=== PATIENT | female | born 1980 | race Caucasian/White ===

== ENCOUNTER → 2016-09-29 | Outpatient (CLI) | payer OTHER ==
[2016-09-29 11:23] LABS: CH 33.2; HDW 2.35; HGB 15.1 gm/dL (11.4-16.0); MCH 34.1 pg (25.0-35.0); MCHC 35.8 g/dL (31.0-37.0); MCV 95.1 fL (80.0-100.0); Mean Platelet Volume 8.6; RBC 4.42 m/uL (3.80-5.40); RDW 12.4 % (11.5-15.5); WBC 6.8 k/uL (3.8-10.6)
[2016-09-29 11:40] LABS: ALT 39 U/L (9-52); AST 18 U/L (14-36); Alkaline Phosphatase 60 U/L (38-126); Bilirubin, Delta 0.2 mg/dL (0.0-0.2); C Reactive Protein <5.0 mg/L (<10.0); Total Bilirubin 0.7 mg/dL (0.2-1.3); Total Protein 7.3 g/dL (6.3-8.2)
[2016-09-29 13:47] LABS: Erythrocyte Sedimentation Rate 3 mm/hr (0-20)
== END ==
LOC: LABWHC1 10:58
PROVIDERS: ATTEND Colon & Rectal Surgery
DX: K50.90 Crohn's disease, unspecified, without complications (principal)
CPT/HCPCS: 36415; 80076; 85027; 85652; 86140

== ENCOUNTER 2017-03-21 07:45 | Emergency (ER) | payer OTHER ==
[2017-03-21] MEDS ORDERED: hydrALAZINE HCL 20 MG/ML 1 ML VIAL IVP STA ×2 (08:24→09:09)
[2017-03-21] MEDS ORDERED: LORazepam 2 MG/ML INJ IV STA (08:24)
--- NOTE | 2017-03-21 08:29 | XR ---
EXAMINATION TYPE: XR chest 2V DATE OF EXAM: 03/21/2017 COMPARISON: NONE HISTORY: Chest discomfort and pain. TECHNIQUE: Frontal and lateral views of the chest are obtained. FINDINGS: There is no focal air space opacity, pleural effusion, or pneumothorax seen. The cardiac silhouette size is within normal limits. The osseous structures are intact. IMPRESSION: No acute cardiopulmonary process.
[2017-03-21 08:39] LABS: ALT 26 U/L (9-52); AST 21 U/L (14-36); Albumin 4.5 g/dL (3.5-5.0); Alkaline Phosphatase 55 U/L (38-126); Anion Gap 11 mmol/L; Blood Urea Nitrogen 11 mg/dL (7-17); Carbon Dioxide 24 mmol/L (22-30); Chloride 105 mmol/L (98-107); Glucose 91 mg/dL (74-99); Magnesium 1.9 mg/dL (1.6-2.3); Potassium 4.4 mmol/L (3.5-5.1); Sodium 140 mmol/L (137-145); Total Bilirubin 0.6 mg/dL (0.2-1.3); Total Protein 7.5 g/dL (6.3-8.2)
[2017-03-21 08:42] LABS: Partial Thromboplastin Time 22.1 sec (22.0-30.0); Prothrombin Time 9.6 sec (9.0-12.0)
--- NOTE | 2017-03-21 08:42 | ED ---
General Adult HPI - General Chief complaint: Recheck/Abnormal Lab/Rx Stated complaint: Hypertensive Time Seen by Provider: 03/21/17 07:45 Source: patient, RN notes reviewed Mode of arrival: ambulatory Limitations: no limitations - History of Present Illness Initial comments: This is a 37-year-old female presents emergency department because she woke up with a headache and then she just felt weird all over and she took her blood pressure was elevated. Patient states is always elevated when she gets checked up but she's never followed up for because she doesn't have a primary medical care doctor. Patient states she took an Excedrin her headache is gone now. Patient states she feels like there is a little tightness when she tries to breathe and she feels very anxious. Patient believes it is related to her high blood pressure. Patient denies any chest pain or pressure. Patient denies any diaphoresis. Patient denies any abdominal pain patient denies nausea vomiting diarrhea. Patient denies any lightheadedness dizziness or near syncopal episode. - Related Data Home Medications Medication Instructions Recorded Confirmed Cnhrvxr-Tosa-Hpos [id number] 2 tab PO Q6H PRN 03/21/17 03/21/17 [Excedrin] L.acidoph,Paracasei, B.lactis 2 cap PO DAILY 03/21/17 03/21/17 [Probiotic] inFLIXimab [Remicade] 1 injection IVPB Q60D 03/21/17 03/21/17 methylPREDNISolone [Medrol Dose See Taper PO DIRECTED 03/21/17 03/21/17 Pack] Previous Rx's Medication Instructions Recorded amLODIPine [Norvasc] 5 mg PO DAILY #14 tab 03/21/17 Allergies Allergy/AdvReac Type Severity Reaction Status Date / Time Penicillins Allergy Rash/Hives Verified 03/21/17 08:13 Review of Systems ROS Statement: Those systems with pertinent positive or pertinent negative responses have been documented in the HPI. ROS Other: All systems not noted in ROS Statement are negative. Past Medical History Additional Past Medical History / Comment(s): ABD PAIN. COLITIS DIAGNOSED DURING COLONSCOPY. WAS MEDICATED WITH FLAGYL AND PREDNISONE. History of Any Multi-Drug Resistant Organisms: None Reported Past Surgical History: Appendectomy Past Anesthesia/Blood Transfusion Reactions: No Reported Reaction Past Psychological History: No Psychological Hx Reported Smoking Status: Current every day smoker Past Alcohol Use History: None Reported Past Drug Use History: None Reported - Past Family History Mother Family Medical History: No Reported History General Exam - General Exam Comments Initial Comments: GENERAL: Patient is well-developed and well-nourished. Patient is nontoxic and well- hydrated and is in mild distress ENT: Neck is soft and supple. No significant lymphadenopathy is noted. Oropharynx is clear. Moist mucous membranes. Neck has full range of motion without eliciting any pain. EYES: The sclera were anicteric and conjunctiva were pink and moist. Extraocular movements were intact and pupils were equal round and reactive to light. Eyelids were unremarkable. PULMONARY: Unlabored respirations. Good breath sounds bilaterally. No audible rales rhonchi or wheezing was noted. CARDIOVASCULAR: There is a regular rate and rhythm without any murmurs gallops or rubs. ABDOMEN: Soft and nontender with normal bowel sounds. No palpable organomegaly was noted. There is no palpable pulsatile mass. SKIN: Skin is clear with no lesions or rashes and otherwise unremarkable. NEUROLOGIC: Patient is alert and oriented x3. Cranial nerves II through XII are grossly intact. Motor and sensory are also intact. Normal speech, volume and content. Symmetrical smile. MUSCULOSKELETAL: Normal extremities with adequate strength and full range of motion. No lower extremity swelling or edema. No calf tenderness. LYMPHATICS: No significant lymphadenopathy is noted PSYCHIATRIC: Normal psychiatric evaluation. Normal interpersonal interactions appears functionally intact in deals appropriately with others. No signs of depression. Limitations: no limitations Course Vital Signs 03/21/17 03/21/17 03/21/17 07:47 08:45 09:14 Temperature 97.7 F Pulse Rate 96 80 73 Respiratory 20 16 16 Rate Blood Pressure 207/103 178/93 189/94 O2 Sat by Pulse 100 98 98 Oximetry 03/21/17 09:25 Temperature Pulse Rate 79 Respiratory 20 Rate Blood Pressure 153/81 O2 Sat by Pulse 98 Oximetry Medical Decision Making - Medical Decision Making EKG shows normal sinus rhythm at 82 bpm ME interval 230 QRS is 90 QT interval 354 QTC is 413. Patient's EKG shows no ST segment elevation or depression or T wave abnormalities. Chest x-ray shows no acute abnormality. Patient's blood pressure came down to 158 systolic and patient had no symptoms. - Lab Data Result diagrams: 03/21/17 08:05 01/03/18 08:05 Lab Results 03/21/17 03/21/17 03/21/17 Range/Units 08:05 08:05 08:05 WBC 10.0 (3.8-10.6) k/uL RBC 4.86 (3.80-5.40) m/uL Hgb 15.8 (11.4-16.0) gm/dL Hct 46.2 H (34.0-46.0) % MCV 95.0 (80.0-100.0) fL MCH 32.5 (25.0-35.0) pg MCHC 34.2 (31.0-37.0) g/dL RDW 12.0 (11.5-15.5) % Plt Count 277 (150-450) k/uL Neutrophils % 57 % Lymphocytes % 33 % Monocytes % 6 % Eosinophils % 1 % Basophils % 1 % Neutrophils # 5.7 (1.3-7.7) k/uL Lymphocytes # 3.3 (1.0-4.8) k/uL Monocytes # 0.6 (0-1.0) k/uL Eosinophils # 0.1 (0-0.7) k/uL Basophils # 0.1 (0-0.2) k/uL PT (9.0-12.0) sec INR (<1.2) APTT (22.0-30.0) sec Sodium 140 (137-145) mmol/L Potassium 4.4 (3.5-5.1) mmol/L Chloride 105 (98-107) mmol/L Carbon Dioxide 24 (22-30) mmol/L Anion Gap 11 mmol/L BUN 11 (7-17) mg/dL Creatinine 0.55 (0.52-1.04) mg/dL Est GFR (MDRD) Af Amer >60 (>60 ml/min/1.73 sqM) Est GFR (MDRD) Non-Af >60 (>60 ml/min/1.73 sqM) Glucose 91 (74-99) mg/dL Calcium 11.0 H (8.4-10.2) mg/dL Magnesium 1.9 (1.6-2.3) mg/dL Total Bilirubin 0.6 (0.2-1.3) mg/dL AST 21 (14-36) U/L ALT 26 (9-52) U/L Alkaline Phosphatase 55 (38-126) U/L Total Creatine Kinase 48 (30-135) U/L CK-MB (CK-2) 0.3 (0.0-2.4) ng/mL CK-MB (CK-2) Rel Index 0.6 Troponin I <0.012 (0.000-0.034) ng/mL Total Protein 7.5 (6.3-8.2) g/dL Albumin 4.5 (3.5-5.0) g/dL 03/21/17 Range/Units 08:05 WBC (3.8-10.6) k/uL RBC (3.80-5.40) m/uL Hgb (11.4-16.0) gm/dL Hct (34.0-46.0) % MCV (80.0-100.0) fL MCH (25.0-35.0) pg MCHC (31.0-37.0) g/dL RDW (11.5-15.5) % Plt Count (150-450) k/uL Neutrophils % % Lymphocytes % % Monocytes % % Eosinophils % % Basophils % % Neutrophils # (1.3-7.7) k/uL Lymphocytes # (1.0-4.8) k/uL Monocytes # (0-1.0) k/uL Eosinophils # (0-0.7) k/uL Basophils # (0-0.2) k/uL PT 9.6 (9.0-12.0) sec INR 1.0 (<1.2) APTT 22.1 (22.0-30.0) sec Sodium (137-145) mmol/L Potassium (3.5-5.1) mmol/L Chloride (98-107) mmol/L Carbon Dioxide (22-30) mmol/L Anion Gap mmol/L BUN (7-17) mg/dL Creatinine (0.52-1.04) mg/dL Est GFR (MDRD) Af Amer (>60 ml/min/1.73 sqM) Est GFR (MDRD) Non-Af (>60 ml/min/1.73 sqM) Glucose (74-99) mg/dL Calcium (8.4-10.2) mg/dL Magnesium (1.6-2.3) mg/dL Total Bilirubin (0.2-1.3) mg/dL AST (14-36) U/L ALT (9-52) U/L Alkaline Phosphatase (38-126) U/L Total Creatine Kinase (30-135) U/L CK-MB (CK-2) (0.0-2.4) ng/mL CK-MB (CK-2) Rel Index Troponin I (0.000-0.034) ng/mL Total Protein (6.3-8.2) g/dL Albumin (3.5-5.0) g/dL Disposition Clinical Impression: Hypertensive urgency Disposition: HOME SELF-CARE Condition: Good Instructions: Hypertension (ED) Prescriptions: amLODIPine [Norvasc] 5 mg PO DAILY #14 tab Referrals: None,Stated [Primary Care Provider] - 1-2 days Time of Disposition: 09:37
[2017-03-21 08:50] LABS: Creatine Kinase 48 U/L (30-135)
[2017-03-21 09:02] LABS: Creatine Kinase MB 0.3 ng/mL (0.0-2.4); Troponin I <0.012 ng/mL (0.000-0.034)
[2017-03-21 09:05] LABS: Basophils # (A) 0.1 k/uL (0-0.2); Basophils % (A) 1 %; Eosinophils # (A) 0.1 k/uL (0-0.7); Eosinophils % (A) 1 %; HCT 46.2 % (34.0-46.0); HGB 15.8 gm/dL (11.4-16.0); Lymphocytes # (A) 3.3 k/uL (1.0-4.8); Lymphocytes % (A) 33 %; MCH 32.5 pg (25.0-35.0); MCHC 34.2 g/dL (31.0-37.0); Mean Platelet Volume 7.6; Monocytes # (A) 0.6 k/uL (0-1.0); Monocytes % (A) 6 %; Neutrophils # (A) 5.7 k/uL (1.3-7.7); Neutrophils % (A) 57 %; Platelet Count 277 k/uL (150-450); RBC 4.86 m/uL (3.80-5.40)
[2017-03-21 23:20] VITALS: BP 147/89; PULSE 85; RESP 16; TEMP 98.4
== END 2017-03-21 09:55 | disposition home or self-care (01) ==
LOC: EC 07:45
DX: I16.0 Hypertensive urgency (principal); F17.200 Nicotine dependence, unspecified, uncomplicated; Z79.52 Long term (current) use of systemic steroids; Z79.899 Other long term (current) drug therapy; Z88.0 Allergy status to penicillin
CPT/HCPCS: 99284 ×2; 96374 ×2; 96375 ×3; 36415; 93005; 80053; 82550; 82553; 83735; 84484; 85025; 85610; 85730; 71046; J2060; J0360

== ENCOUNTER 2017-03-26 12:32 | Emergency (ER) | payer OTHER ==
[2017-03-26 13:02] VITALS: RESP 16; TEMP 99.2
--- NOTE | 2017-03-26 14:22 | ED ---
General Adult HPI - General Chief complaint: Neuro Symptoms/Deficit Stated complaint: Facial Numbess Time Seen by Provider: 03/26/17 13:43 Source: patient, RN notes reviewed, old records reviewed Mode of arrival: ambulatory Limitations: no limitations - History of Present Illness Initial comments: This patient is a 37-year-old female presents today to complain of left sided facial numbness. She of course it started but she was going to work. Reports that she has no changes with movement of her face. She reports it's mainly over her left cheek, no other areas. Patient states that she is had no drummer falls or any other symptoms associated with this. She denies a headache. Patient has no otherComplaints of neurodeficits. She relates that she was recently started on blood pressure medication. She your porch is not followed up with her primary care physician. She denies any other complaints at this time. - Related Data Home Medications Medication Instructions Recorded Confirmed Aumrvzv-Umeo-Exri [id number] 2 tab PO Q6H PRN 03/21/17 03/26/17 [Excedrin] L.acidoph,Paracasei, B.lactis 2 cap PO DAILY 03/21/17 03/26/17 [Probiotic] inFLIXimab [Remicade] 1 injection IVPB Q60D 03/21/17 03/26/17 Previous Rx's Medication Instructions Recorded amLODIPine [Norvasc] 5 mg PO DAILY #14 tab 03/21/17 Allergies Allergy/AdvReac Type Severity Reaction Status Date / Time Penicillins Allergy Rash/Hives Verified 03/26/17 13:50 Review of Systems ROS Statement: Those systems with pertinent positive or pertinent negative responses have been documented in the HPI. ROS Other: All systems not noted in ROS Statement are negative. Past Medical History Past Medical History: Hypertension Additional Past Medical History / Comment(s): ABD PAIN. COLITIS DIAGNOSED DURING COLONSCOPY. WAS MEDICATED WITH FLAGYL AND PREDNISONE. History of Any Multi-Drug Resistant Organisms: None Reported Past Surgical History: Appendectomy Past Anesthesia/Blood Transfusion Reactions: No Reported Reaction Past Psychological History: No Psychological Hx Reported Smoking Status: Current every day smoker Past Alcohol Use History: None Reported Past Drug Use History: None Reported - Past Family History Mother Family Medical History: No Reported History General Exam - General Exam Comments Initial Comments: Well appearing 37-year-old female. No distress. Limitations: no limitations General appearance: alert, in no apparent distress Head exam: Present: atraumatic, normocephalic, normal inspection Eye exam: Present: normal appearance, PERRL, EOMI. Absent: scleral icterus, conjunctival injection, periorbital swelling ENT exam: Present: normal exam, mucous membranes moist Neck exam: Present: normal inspection. Absent: tenderness, meningismus, lymphadenopathy Respiratory exam: Present: normal lung sounds bilaterally. Absent: respiratory distress, wheezes, rales, rhonchi, stridor Cardiovascular Exam: Present: regular rate, normal rhythm, normal heart sounds. Absent: systolic murmur, diastolic murmur, rubs, gallop, clicks Extremities exam: Present: normal inspection, full ROM, normal capillary refill. Absent: tenderness, pedal edema, joint swelling, calf tenderness Back exam: Present: normal inspection Neurological exam: Present: alert, oriented X3, CN II-XII intact Expanded Patient oriented to: Present: person, place, time Speech: Present: fluid speech Cranial nerves: EOM's Intact: Normal, Gag Reflex: Normal, Tongue Deviation: Normal, Facial Sensation: Abnormal Left (Patient reports paresthesias over left cheek) Cerebellar function: Finger to Nose: Normal Upper motor neuron: Pronator Drift: Normal Sensory exam: Upper Extremity Light Touch: Normal, Lower Extremity Light Touch: Normal Motor strength exam: RUE: 5, LUE: 5, RLE: 5, LLE: 5 Eye Response: (4) open spontaneously Motor Response: (6) obeys commands Verbal Response: (5) oriented Otis Total: 15 Psychiatric exam: Present: normal affect, normal mood Skin exam: Present: warm, dry, intact, normal color. Absent: rash Course Vital Signs 03/26/17 03/26/17 12:59 14:28 Temperature 99.2 F Pulse Rate 84 79 Respiratory 16 16 Rate Blood Pressure 146/104 135/76 O2 Sat by Pulse 99 97 Oximetry Medical Decision Making - Medical Decision Making This patient is a 37-year-old female presents today to complain of left sided facial numbness. She of course it started but she was going to work. Reports that she has no changes with movement of her face. She reports it's mainly over her left cheek, no other areas. Patient has no facial palsy. No other for vocal or lateralizing neuroscience. Patient has no headache, and is asymptomatic. She has the subjective and telling over her left cheek. Discussed the possibility of some trigeminal paresthesias. Discussed possibility of bells palsy is well. Discussed however she has no significant motor deficits, no concern for stroke at this time. Patient seems relieved with this finding, and I discussed she is well to go home. She did have a full work up one week ago, in regards to her diagnosisi with elevated blood pressure. Patient informed of return parameters and discussed follow up with PCP. Disposition Clinical Impression: Facial paresthesia Disposition: HOME SELF-CARE Condition: Good Instructions: Paresthesia (ED) Additional Instructions: Continue to take your blood pressure medication. Return to the emergency department if any alarming signs or symptoms occur. Referrals: Edgar Lemos DO [Primary Care Provider] - 1-2 days Time of Disposition: 14:21
[2017-03-26 14:29] VITALS: BP 135/76; PULSE 79
== END 2017-03-26 14:30 | disposition home or self-care (01) ==
LOC: EC 12:32
DX: R20.2 Paresthesia of skin (principal); R40.2142 Coma scale, eyes open, spontaneous, at arrival to emergency department; R40.2252 Coma scale, best verbal response, oriented, at arrival to emergency department; R40.2362 Coma scale, best motor response, obeys commands, at arrival to emergency department; F17.200 Nicotine dependence, unspecified, uncomplicated; Z79.899 Other long term (current) drug therapy; Z88.0 Allergy status to penicillin
CPT/HCPCS: 99284

== ENCOUNTER → 2019-02-27 | Outpatient (CLI) | payer OTHER ==
--- NOTE | 2019-02-27 08:56 | US ---
EXAMINATION TYPE: US abdomen comp/pelvis limited DATE OF EXAM: 02/27/2019 COMPARISON: NONE CLINICAL HISTORY: R10.0 ABD PAIN. EXAM MEASUREMENTS: Liver Length: 13.7 cm Gallbladder Wall: Surgically absent CBD: 0.4 cm Spleen: 9.6 cm Right Kidney: 13.6 x 3.9 x 4.7 cm Left Kidney: 12.6 x 5.5 x 6.3 cm Pancreas: wnl Liver: wnl Gallbladder: Surgically absent CBD: wnl Spleen: wnl Right Kidney: No hydronephrosis or masses seen Left Kidney: No hydronephrosis or masses seen Upper IVC: wnl Abd Aorta: Obscured by overlying bowel gas Bladder: wnl Bilateral Jets Seen Yes IMPRESSION: 1. No distinct abnormality appreciated.
== END ==
LOC: RADUSWWP 08:06
PROVIDERS: ATTEND Family Medicine
DX: R10.0 Acute abdomen (principal)
CPT/HCPCS: 76700; 76857

== ENCOUNTER → 2019-11-18 | Outpatient (CLI) | payer BC | END | disposition home or self-care (01) | LOC: LABWHC1 09:04 | PROVIDERS: ATTEND Family Medicine | DX: Z03.818 Encounter for observation for suspected exposure to other biological agents ruled out (principal) | CPT/HCPCS: U0003; C9803 ==

== ENCOUNTER → 2020-05-06 | Outpatient (CLI) | payer BC | END | disposition home or self-care (01) | LOC: LABWHC1 09:48 | PROVIDERS: ATTEND Family Medicine | DX: Z20.822 Contact with and (suspected) exposure to COVID-19 (principal) | CPT/HCPCS: U0003; C9803 ==

== ENCOUNTER → 2021-03-02 | Outpatient (CLI) | payer BC ==
[2021-03-02 13:43] LABS: African American GFR (CKD) >90 (>60 ml/min/1.73 sqM); Blood Urea Nitrogen 11 mg/dL (7-17); Non-African American GFR(CKD) >90 (>60 ml/min/1.73 sqM)
--- NOTE | 2021-03-02 15:05 | CT ---
EXAMINATION TYPE: CT brain w con DATE OF EXAM: 03/02/2021 COMPARISON: None. HISTORY: Dizziness and visual changes CT DLP: 1201 mGycm. Automated Exposure Control for Dose Reduction was Utilized. TECHNIQUE: CT scan of the head is performed without and with IV Contrast, patient injected with 100 ml mL of Isovue 300. FINDINGS: No sulcal effacement. Slight prominence of the ventricles with enhancing 1.4 x 1.1 cm lesio n at level of the foramen of Shaw measuring axial image 29 and sagittal image 26. The fourth ventri brisa is not dilated. There is of low attenuation in the periventricular white matter likely reflect tr ansependymal flow of CSF. The globes are intact and the visualized sinuses are clear. 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 Advise neurosurgical referral. A Yellow level critical message alert has been initiated for Edgar Lemos DO via the [employer] Critical Results System on 03/02/2021 3:02 PM. This message alert has been sent to Edgar Lemos DO vi a the preferences provided by the clinician for the receipt of Radiology Critical Findings. Message I [id number].
== END | disposition home or self-care (01) ==
LOC: RADCTMAIN 13:03
PROVIDERS: ATTEND Family Medicine
DX: G45.4 Transient global amnesia (principal); H53.8 Other visual disturbances; R42 Dizziness and giddiness
CPT/HCPCS: 82565; 84520; 70460; 36415; Q9967